=== PATIENT | female | born 1980 | race African-American/Black ===

== ENCOUNTER 2018-01-23 13:51 | Emergency (ER) | payer OTHER ==
[2018-01-23 14:00] VITALS: BP 158/102; PULSE 114; TEMP 98; BMI 43.6
[2018-01-23 15:17] LABS: HCG,QUALITATIVE URINE NEGATIVE; URINE APPEARANCE CLOUDY; URINE BILIRUBIN NEGATIVE (NEGATIVE); URINE BLOOD NEGATIVE (NEGATIVE); URINE COLOR LTYELLOW; URINE GLUCOSE (UA) NEGATIVE (NEGATIVE); URINE KETONE TRACE (NEGATIVE); URINE NITRITE NEGATIVE (NEGATIVE); URINE PROTEIN NEGATIVE (NEGATIVE); URINE UROBILINOGEN NEGATIVE mg/dL (0.2-1.0)
[2018-01-23 15:23] LABS: URINE LEUK ESTERASE 3+ (NEGATIVE)
[2018-01-23 15:25] LABS: EPI CELLS MANY /HPF (FEW); URINE BACTERIA RARE /hpf (NONE SEEN); URINE MUCUS RARE
--- NOTE | 2018-01-23 15:36 | PDOC ---
History of Present Illness - General Chief Complaint: Back Pain Stated Complaint: LOW BACK PAIN Time Seen by Provider: 01/23/18 14:23 - History of Present Illness Initial Comments: 01/23/18 15:35 CHIEF COMPLAINT: vaginal discomfort HISTORY OF PRESENT ILLNESS: 37 yo F with hx of HTN [facility] with c /o of vaginal burning x 1 week and back pain. Patient reports that she saw her OBGYN and was given a vaginal cream that has provided no relief. Patient denies any fever, chills, nausea, vomiting, or diarrhea. No recent travel or sick contacts. PAST MEDICAL HISTORY: Denies past medical history FAMILY HISTORY: Denies SOCIAL HISTORY: Denies tobacco, alcohol, illicit drug use. SURGICAL HISTORY: Denies ALLERGIES: No known drug allergies REVIEW OF SYSTEMS General/Constitutional: Denies fever or chills. Denies weakness. HEENT: Denies change in vision. Denies ear pain or discharge. Denies sore throat. Cardiovascular: Denies chest pain or shortness of breath. Respiratory: Denies cough, wheezing, or hemoptysis. Gastrointestinal: Denies nausea, vomiting, diarrhea or constipation. Denies rectal bleeding. Genitourinary: Vaginal burning, denies hematuria or urinary urgency/frequency. Musculoskeletal: Back discomfort. Denies joint or muscle swelling or pain. Skin and breasts: Denies rash or easy bruising. Neurologic: Denies headache, vertigo, loss of consciousness, or loss of sensation. PHYSICAL EXAM General Appearance: Well-appearing, appropriately dressed. No apparent distress , no intoxication. HEENT: EOMI, PERRLA, normal ENT inspection, normal voice, TMs normal, pharynx normal. No conjunctival pallor. No photophobia, scleral icterus. Neck: Supple. Trachea midline. No tenderness, rigidity, carotid bruit, stridor , lymphadenopathy, or thyromegaly. Respiratory/Chest: Lungs CTAB. No shortness of breath, chest tenderness, respiratory distress, accessory muscle use. No crackles, rales, rhonchi, stridor , wheezing, dullness Cardiovascular: RRR. S1, S2. No JVD, murmur, bradycardia, tachycardia. Vascular Pulses: Dorsalis-Pedis (R): 2+, Dorsalis-Pedis (L): 2+ Gastrointestinal/Abdominal: Normal bowel sounds. Abdomen soft, non-distended. No tenderness or rebound tenderness. No organomegaly, pulsatile mass, guarding , hernia, hepatomegaly, splenomegaly. Lymphatic: No adenopathy, tenderness. Musculoskeletal/Extremities: Normal inspection. FROM of all extremities, normal capillary refill. Pelvis Stable. No CVA tenderness. No tenderness to extremities, pedal edema, swelling, erythema or deformity. Integumentary: Appropriate color, dry, warm. No cyanosis, erythema, jaundice or rash Neurologic: clay burner II-XII intact. Fully oriented, alert. Appropriate mood/affect. Motor strength 5/5. No appreciable EOM palsy, facial droop or sensory deficit. 01/23/18 16:44 Past History - Past Medical History Allergies/Adverse Reactions: Allergies Allergy/AdvReac Type Severity Reaction Status Date / Time No Known Allergies Allergy Verified 01/23/18 14:00 Home Medications: Ambulatory Orders Losartan 50Mg/Hctz 12.5MG [Hyzaar -] 1 tab PO DAILY 01/23/18 Nitrofurantoin Monohyd/M-Cryst [Macrobid -] 100 mg PO BID #14 capsule 01/23/18 Phenazopyridine HCl [Azo Standard] 95 mg PO TID PRN #12 tablet 01/23/18 COPD: No HTN: Yes - Suicide/Smoking/Psychosocial Hx Smoking History: Never smoked *Physical Exam - Vital Signs Last Vital Signs Temp Pulse Resp BP Pulse Ox 98 F 114 H 20 158/102 99 01/23/18 13:57 01/23/18 13:57 01/23/18 13:57 01/23/18 13:57 01/23/18 13:57 ED Treatment Course - ADDITIONAL ORDERS Additional order review: Laboratory Results 01/23/18 14:45 Urine Color Ltyellow Urine Appearance Cloudy Urine pH 5.0 Ur Specific [place] 1.017 Urine Protein Negative Urine Glucose (UA) Negative Urine Ketones Trace H Urine Blood Negative Urine Nitrite Negative Urine Bilirubin Negative Urine Urobilinogen Negative Ur Leukocyte Esterase 3+ H Urine WBC (Auto) 52 Urine RBC (Auto) 2 Ur Epithelial Cells Many Urine Bacteria Rare Urine Mucus Rare Urine HCG, Qual Negative Medical Decision Making - Medical Decision Making 01/23/18 16:49 37 yo F with hx of HTN presents to [facility] with c/o of vaginal burning x 1 week and back pain. -Upreg, UA, UCx UA + 53 WBC Will treat for UTI. Macrobid, Azo, given. *DC/Admit/Observation/Transfer Diagnosis at time of Disposition: UTI (urinary tract infection) - Discharge Dispostion Disposition: HOME Condition at time of disposition: Stable Admit: No - Prescriptions Prescriptions: Nitrofurantoin Monohyd/M-Cryst [Macrobid -] 100 mg PO BID #14 capsule Phenazopyridine HCl [Azo Standard] 95 mg PO TID PRN #12 tablet PRN Reason: urinary pain/burning - Referrals Referrals: Judy Tejeda MD [Primary Care Provider] - - Patient Instructions Printed Discharge Instructions: DI for Urinary Tract Infection (UTI) Additional Instructions: Please take medications as prescribed; complete the entire course of antibiotics even if your symptoms improve. If you develop any fever, chills, vomiting, or diarrhea, or any new or worsening symptoms, please return to the ER. - Post Discharge Activity
== END 2018-01-23 15:42 | disposition home or self-care (01) ==
LOC: JERFT 13:51
DX: N39.0 Urinary tract infection, site not specified (principal); I10 Essential (primary) hypertension
CPT/HCPCS: 81003; 81015; 84703; 87086; 99281-25

== ENCOUNTER 2019-05-31 12:00 | Inpatient (IN) | payer OTHER ==
[2019-05-31 13:03] VITALS: BMI 45.1
[2019-05-31] MEDS ORDERED: SODIUM CHLORIDE 100 ML IVPB ONE ×2 (13:07→17:04)
[2019-05-31] MEDS ORDERED: AMPICILLIN SODIUM 2 GM VIAL ONE (13:07)
[2019-05-31] MEDS ORDERED: AMPICILLIN - 2 GM in SODIUM CHLORIDE 100 ML IVPB ONE (13:26)
[2019-05-31] MEDS: ELECTROLYTE-148 SOLN 1,000 ML IV SCH ×2 (13:30→18:47)
[2019-05-31 13:36] LABS: BASO % 0.3 % (0-2.0); EOS % 1.5 % (0-4.5); HEMATOCRIT 29.7 % (32.4-45.2); LYMPH % 20.1 % (8-40); MCH 32.4 pg (25.7-33.7); MCHC 33.8 g/dl (32.0-36.0); MEAN CELL VOLUME 95.9 fl (80-96); MEAN PLT VOLUME 8.5 fl (7.5-11.1); NEUT % 71.1 % (42.8-82.8); PLATELET COUNT 261 K/MM3 (134-434); RDW 12.6 % (11.6-15.6); WHITE BLOOD COUNT 7.4 K/mm3 (4.0-10.0)
[2019-05-31 13:49] LABS: INR 0.92 (0.83-1.09); PROTHROMBIN TIME (PATIENT) 10.9 SEC (9.7-13.0)
[2019-05-31 13:51] LABS: ACTIVATED PTT 30.7 SECONDS (25.2-36.5)
[2019-05-31 14:26] LABS: BLOOD UREA NITROGEN 8.6 mg/dL (7-18); CALCIUM 8.7 mg/dL (8.5-10.1); CREATININE 0.6 mg/dL (0.55-1.3); POTASSIUM 3.9 mmol/L (3.5-5.1)
--- NOTE | 2019-05-31 15:07 | HP ---
Past Medical History - Admission Chief Complaint: IOL for CHTN History of Present Illness: 38yo @ 39+wks here for IOL for CHTN- controlled on meds. No GAYLE, No N/ V. No RUQ pain. No edema No VB/LOF. No ctx. +FM. Preg c/b: AMA, CHTN- on Labatelol BID, prior PTD at 24wks s/p cerclage placement /removal, obesity, GBS UTI History Source: Patient Limitations to Obtaining History: No Limitations - Past Medical History FIELD SPECIALIST: No: Alzheimer's, CVA, Dementia, Migraine, Multiple Sclerosis, Peripheral Neuropathy, Parkinson's, Seizure, Syncope, TIA, Vertigo, Other Cardiovascular: Yes: HTN Pulmonary: No: Asthma, Bronchitis, Cancer, COPD, O2 Dependent, Pneumonia, Previously Intubated, Pulmonary Embolus, Pulmonary Fibrosis, Sleep Apnea, Other Gastrointestinal: No: Ascites, Cancer, Constipation, Crohn's Disease, Diverticulitis, Diverticulosis, Esophageal Varices, Gastritis, GERD, GI Bleed, Hemorrhoids, Hiatal Hernia, Inflamatory Bowel Disease, Irritable Bowel Disease, Pancreatitis, Peptic Ulcer Disease, Ulcerative Colitis, Other Hepatobiliary: No: Cirrhosis, Cholelithiasis, Cholecystitis, Choledocholithiasis , Hepatitis A, Hepatitis B, Hepatitis C, Other Renal/: Yes: UTI Reproductive: No: Ectopic , Endometriosis, Fibroids, PID, Polycystic Ovary Syndrome, Postmenopausal, Other ...: 4 ...Para: 2 ...Term: 1 ...: 1 ...Spon : 0 ...Induced : 1 ...Multiple Gestation: 0 ...EDC by Sono: 06/03/19 Heme/Onc: Yes: Anemia Infectious Disease: No: AIDS, C-Diff, Herpes Zoster, HIV, MRSA, STD's, Tuberculosis, VREF, Other Psych: No: Addictions, Anxiety, Bipolar, Depression, Panic, Psychosis, Schizophrenia, Other Musculoskeletal: No: Bursitis, Chronic low back pain, Hemiparesis, Hemiplegia, Osteoarthritis, Paraplegia, Other Rheumatology: No: Fibromyalgia, Gout, Lupus, Rheumatoid Arthritis, Sarcoidosis, Vasculitis, Other ENT: No: Allergic Rhinitis, Sinusitis, Other Endocrine: No: [place]'s Disease, Serena's Disease, Diabetes Insipidus, Diabetes Mellitus, Hyperparathyroidism, Hyperthyroidism, Hypothyroidism, Osteopenia, SIADH, Other Dermatology: No: Basal Cell, Cellulitis, Eczema, Melanoma, Psoriasis, Squamous Cell, Other - Past Surgical History Past Surgical History: Yes: None Hx Myomectomy: No Hx Transabdominal Cerclage: No - Smoking History Smoking history: Never smoked Have you smoked in the past 12 months: No - Alcohol/Substance Use Hx Alcohol Use: No History of Substance Use: reports: None - Social History Usual Living Arrangement: Yes: With Spouse ADL: Independent History of Recent Travel: No Home Medications - Allergies Allergies/Adverse Reactions: Allergies Allergy/AdvReac Type Severity Reaction Status Date / Time No Known Allergies Allergy Verified 05/31/19 12:47 - Home Medications Home Medications: Ambulatory Orders Labetalol HCl [Normodyne -] 200 mg PO BID 05/31/19 Physical Exam - Maternity Vital Signs: Vital Signs Temperature 98.0 F 05/31/19 14:25 Pulse Rate 102 H 05/31/19 14:25 Respiratory Rate 20 05/31/19 14:25 Blood Pressure 124/72 05/31/19 14:25 O2 Sat by Pulse Oximetry (%) Constitutional: Yes: Well Nourished, No Distress, Calm Eyes: Yes: WNL, Conjunctiva Clear, EOM Intact HENT: Yes: WNL, Atraumatic, Normocephalic Neck: Yes: WNL, Supple, Trachea Midline Cardiovascular: Yes: WNL, Regular Rate and Rhythm Breast(s): Yes: WNL - Abdominal Exam/OB Number of Fetuses: Single Presentation: Vertex Contractions: No Accelerations: Non-Uniform Decelerations: None - Vaginal Exam/OB Dilatation (cm): 4 Effacement (%): 75 Amniotic Membrane Status: Intact Presentation: Vertex/Position Station: -3 - Physical Exam Edema: No - Labs Lab Results: CBC, BMP 05/31/19 13:18 05/31/19 13:18 Problem List - Problems (1) Hypertension Code(s): I10 - ESSENTIAL (PRIMARY) HYPERTENSION Assessment/Plan 38yo @ 39wks here for IOL for CHTN- controlled Admit to L&D Amp for GBS positive Pitocin/AROM for IOL Epidural anesthesia Cat I tracing Anticipate NIECY Lopez MD
[2019-05-31] MEDS ORDERED: OXYTOCIN 30 UNITS in 0.9% NS 30 UNIT/500 ML INFUS.BAG IVPB ONE (15:53)
[2019-05-31] MEDS: OXYTOCIN 30 UNITS in 0.9% NS 30 UNIT/500 ML INFUS.BAG IVPB SCH (16:05)
[2019-05-31 16:34] LABS: COCAINE, UR NEGATIVE ng/ml (CUTOFF=300); METHADONE, UR NEGATIVE ng/ml (CUTOFF=300); OPIATES, URI NEGATIVE ng/ml (CUTOFF=300); PHENCYCLIDINE,URINE NEGATIVE ng/ml (CUTOFF=25); URINE AMPHETAMINES NEGATIVE ng/ml (CUTOFF=500); URINE BARBITURATES NEGATIVE ng/ml (CUTOFF=200); URINE BENZODIAZEPINES NEGATIVE ng/ml (CUTOFF=200)
[2019-05-31] MEDS ORDERED: AMPICILLIN SODIUM 1 GM VIAL ONE ×2 (17:04→20:57)
[2019-05-31] MEDS: AMPICILLIN - 1 GM in SODIUM CHLORIDE 100 ML IVPB SCH ×2 (17:09→21:18)
--- NOTE | 2019-05-31 17:20 | PN ---
Progress Note, Labor Vaginal Exam #1 Labor Exam Date: 05/31/19 Labor Exam Time: 17:20 Heart Rate (range): Cat I Dilatation: 4 Effacement (%): 75 Amniotic Membrane Status: Ruptured Presentation: Vertex/Position Station: -3 Remarks: AROM, clears Declined epidural at this time Cont pitocin Anticipate Nasir Lopez MD
[2019-05-31] MEDS ORDERED: FENTANYL/BUPIVACAINE/NS/PF - PCEA - 50 ML DISP.SYRIN EP ONE (17:54)
[2019-05-31] MEDS: FENTANYL/BUPIVACAINE/NS/PF - PCEA - 50 ML DISP.SYRIN EP SCH (18:25)
[2019-05-31] MEDS ORDERED: NALOXONE HCL 0.4 MG/ML VIAL IVPUSH PRN (18:52)
--- NOTE | 2019-05-31 20:16 | PN ---
Progress Note, Labor Vaginal Exam #2 Labor Exam Date: 05/31/19 Labor Exam Time: 20:08 Heart Rate (range): Cat I Dilatation: 6 Effacement (%): 700 Amniotic Membrane Status: Ruptured Presentation: Vertex/Position Station: -3 Remarks: Pt comfortable s/p epidural Pit @ 6mu Difficulty monitoring contractions 2/2 habitus, IUPC placed Anticipate Nasir Lopez MD
[2019-05-31] MEDS ORDERED: LIDOCAINE HCL 1% PRESERVATIVE FREE - 30ML VIAL ONE (20:57)
--- NOTE | 2019-05-31 21:53 | PN ---
Progress Note, Labor Vaginal Exam #3 Labor Exam Date: 05/31/19 Labor Exam Time: 21:52 Heart Rate (range): Cat II Dilatation: 10 Effacement (%): 100 Amniotic Membrane Status: Ruptured Presentation: Vertex/Position Station: 0 Remarks: Now complete Variable decelerations, thus Cat II Start pushing Anticipate NIECY Lopez MD
[2019-05-31] MEDS ORDERED: OXYTOCIN 20 UNITS in 0.9% NS 20 UNIT/1,000 ML INFUS.BAG IV ONE (22:18)
[2019-05-31] MEDS ORDERED: BENZOCAINE 20% 57 GM BOTTLE TP PRN (22:34)
[2019-05-31] MEDS ORDERED: METHYLERGONOVINE MALEATE 0.2 MG/1 ML AMP IM PRN (22:34)
[2019-05-31] MEDS ORDERED: BENZOCAINE 28 GM HEMORRHOIDAL OINTMENT TP PRN (22:34)
[2019-05-31] MEDS ORDERED: BISACODYL 10 MG SUPP.RECT RC PRN (22:34)
[2019-05-31] MEDS ORDERED: WITCH HAZEL 50% (TUCKS) 40 PAD/JAR PAD TP PRN (22:34)
--- NOTE | 2019-05-31 22:34 | PN ---
Delivery - Delivery Vaginal Delivery: Spontaneous Type of Anesthesia: Epidural Episiotomy/Laceration: None EBL (cc): 300 Delivery, Single - Stages of Labor Placenta: Yes: Spontaneous - Condition of Sba Underwriter/Inbound Call Center Representative Present: No Infant Gender: Male Position: Left, OA - 1 Minute Total Score: 9 5 Minutes Total Score: 9 - [place] Feeding Plan Initial Plan: Elected not to breastfeed exclusively throughout hospitalization Remarks - Remarks Remarks: of VMI from JUSTIN position over intact perineum. Epidural anesthesia. 39 week . Spontaneous delivery of anterior shoulder. placed on maternal abdomen. Vigorous. Apgars 9/9. Weight pending. Spontaneous delivery of intact placenta with 3VC. Fundus firm. Perineum inspected, no lacerations. EBL 300. Mother and baby boyJohn, doing well. Rylee Lopez MD
[2019-05-31] MEDS: OXYTOCIN 20 UNITS in 0.9% NS 20 UNIT/1,000 ML INFUS.BAG IV SCH (23:00)
[2019-06-01] MEDS: OXYTOCIN 20 UNITS in 0.9% NS 20 UNIT/1,000 ML INFUS.BAG IV SCH (07:00)
[2019-06-01] MEDS: ACETAMINOPHEN 325 MG TABLET (FP) PO PRN ×2 (08:01→23:31)
--- NOTE | 2019-06-01 08:05 | PN ---
Post Progress Note Type of Delivery: Vital Signs: Vital Signs Temperature 98.4 F 06/01/19 06:00 Pulse Rate 73 06/01/19 06:00 Respiratory Rate 18 06/01/19 06:00 Blood Pressure 123/68 06/01/19 06:00 O2 Sat by Pulse Oximetry (%) 98 05/31/19 23:15 Uterus: No: Fundus Firm, Fundus above umbilicus, Fundus @ umbilicus, Fundus below umbilicus, Non-tender, Other Incision: No: Dressing dry and intact, [place] intact, Sutures intact, Redness, Oozing, Other Abdomen/GI: Yes: Abdomen soft Lochia: Yes: Rubra Lochia, amount: Small Extremities: Yes: Calves non-tender Perineum: Yes: Intact Activity: Ambulating - Labs Labs: CBC WBC 7.4 K/mm3 (4.0-10.0) 05/31/19 13:18 RBC 3.10 M/mm3 (3.60-5.2) L 05/31/19 13:18 Hgb 10.0 GM/dL (10.7-15.3) L 05/31/19 13:18 Hct 29.7 % (32.4-45.2) L 05/31/19 13:18 MCV 95.9 fl (80-96) 05/31/19 13:18 MCH 32.4 pg (25.7-33.7) 05/31/19 13:18 MCHC 33.8 g/dl (32.0-36.0) 05/31/19 13:18 RDW 12.6 % (11.6-15.6) 05/31/19 13:18 Plt Count 261 K/MM3 (134-434) 05/31/19 13:18 MPV 8.5 fl (7.5-11.1) 05/31/19 13:18 Absolute Neuts (auto) 5.3 K/mm3 (1.5-8.0) 05/31/19 13:18 Neutrophils % 71.1 % (42.8-82.8) 05/31/19 13:18 Lymphocytes % 20.1 % (8-40) 05/31/19 13:18 Monocytes % 7.0 % (3.8-10.2) 07/17/19 13:18 Eosinophils % 1.5 % (0-4.5) 05/31/19 13:18 Basophils % 0.3 % (0-2.0) 05/31/19 13:18 Nucleated RBC % 0 % (0-0) 05/31/19 13:18 Problem List - Problems (1) Hypertension Code(s): I10 - ESSENTIAL (PRIMARY) HYPERTENSION Assessment/Plan 38yo s/p , PPD#1 Routine PP care Cont HTN meds Labs pending D/C to home PPD#2 Nasir Lopez MD
[2019-06-01 08:07] LABS: BASO % 0.4 % (0-2.0); EOS % 1.8 % (0-4.5); HEMATOCRIT 29.7 % (32.4-45.2); HEMOGLOBIN 10.1 GM/dL (10.7-15.3); LYMPH % 20.1 % (8-40); MCHC 34.1 g/dl (32.0-36.0); MEAN CELL VOLUME 96.8 fl (80-96); MEAN PLT VOLUME 8.3 fl (7.5-11.1); MONO % 9.7 % (3.8-10.2); RBC 3.06 M/mm3 (3.60-5.2); RDW 12.6 % (11.6-15.6); WHITE BLOOD COUNT 9.7 K/mm3 (4.0-10.0)
[2019-06-01] MEDS: IBUPROFEN 600 MG TABLET (FP) PO PRN ×2 (08:18→23:31)
[2019-06-01 08:34] LABS: PLATELET COUNT 265 K/MM3 (134-434)
[2019-06-01] MEDS: PRENATAL VITAMINS W/ FOLIC ACID TABLET (FP) PO SCH (09:38)
[2019-06-01] MEDS: LABETALOL HCL 200 MG TABLET (FP) PO SCH ×2 (09:38→21:10)
[2019-06-01] MEDS ORDERED: SENNOSIDES/DOCUSATE COMBO (SENNA PLUS) TABLET (UD) PO PRN (22:00)
[2019-06-02] MEDS: ELECTROLYTE-148 SOLN 1,000 ML IV SCH (05:29)
[2019-06-02] MEDS: FENTANYL/BUPIVACAINE/NS/PF - PCEA - 50 ML DISP.SYRIN EP SCH (05:29)
[2019-06-02] MEDS: OXYTOCIN 30 UNITS in 0.9% NS 30 UNIT/500 ML INFUS.BAG IVPB SCH (05:29)
[2019-06-02] MEDS: OXYTOCIN 20 UNITS in 0.9% NS 20 UNIT/1,000 ML INFUS.BAG IV SCH (05:29)
[2019-06-02] MEDS: AMPICILLIN - 1 GM in SODIUM CHLORIDE 100 ML IVPB SCH (05:37)
--- NOTE | 2019-06-02 06:09 | DS ---
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 Vital Signs: Vital Signs Temperature 98.6 F 06/02/19 05:54 Pulse Rate 88 06/02/19 05:54 Respiratory Rate 20 06/02/19 05:54 Blood Pressure 138/88 06/02/19 05:54 O2 Sat by Pulse Oximetry (%) 98 05/31/19 23:15 Constitutional: Yes: Well Nourished, No Distress, Calm Eyes: Yes: WNL, Conjunctiva Clear, EOM Intact HENT: Yes: WNL, Atraumatic, Normocephalic Neck: Yes: WNL, Supple, Trachea Midline Cardiovascular: Yes: WNL, Regular Rate and Rhythm Respiratory: Yes: WNL, Regular, CTA Bilaterally Gastrointestinal: Yes: WNL ...Rectal Exam: Yes: WNL Renal/: Yes: WNL ....Post : Yes: Uterus firm, Uterus non-tender, Slight lochia rubra Breast(s): Yes: WNL Musculoskeletal: Yes: WNL Extremities: Yes: WNL Edema: No Integumentary: Yes: WNL Neurological: Yes: WNL, Alert, Oriented ...Motor Strength: WNL Psychiatric: Yes: WNL, Alert, Oriented Labs: CBC, BMP 06/01/19 07:40 05/31/19 13:18 Delivery - Delivery Vaginal Delivery: Spontaneous Type of Anesthesia: Epidural Episiotomy/Laceration: None EBL (cc): 300 Delivery, Single - Stages of Labor Date 1st Stage Initiatied: 05/31/19 Time 1st Stage Initiated: 21:00 Date 2nd Stage Initiated: 05/31/19 Time 2nd Stage Initiated: 21:50 Date of Delivery: 05/31/19 Time of Delivery: 22:21 Time Placenta Delivered: 22:28 Placenta: Yes: Spontaneous - Condition of Circuit Design Engineer/Commercial Food Instructor Present: No Gender: Male Weight: 7 lb 8 oz Position: Left, OA Total Hours ROM (Hrs/Mins): 5/1 - 1 Minute Total Score: 9 5 Minutes Total Score: 9 - [place] Feeding Plan Initial Plan: Elected not to breastfeed exclusively throughout hospitalization Discharge Summary Reason For Visit: INDUCTION OF LABOR Procedures: Principal: Condition: Stable - Instructions Diet, Activity, Other Instructions: Regular Diet Follow up in one week for a blood pressure check Referrals: Rylee Lopez MD [Staff Physician] - Disposition: HOME - Home Medications Comprehensive Discharge Medication List: Ambulatory Orders Labetalol HCl [Normodyne -] 200 mg PO BID 05/31/19
--- NOTE | 2019-06-02 06:11 | PN ---
Progress Note (short form) - Note Progress Note: ppd 2 ,no c/o , no excess vaginal bleeding CBC, BMP 06/01/19 07:40 05/31/19 13:18 Last Vital Signs Temp Pulse Resp BP Pulse Ox 98.6 F 88 20 138/88 98 06/02/19 05:54 06/02/19 05:54 06/02/19 05:54 06/02/19 05:54 05/31/19 23:15 abdomen soft, uterus firm, non tender no calf tenderness lochia mild no edema plan d/c home, asymptomatic follow up in H care and with her pcp for HTNinstruction given
[2019-06-02 09:15] VITALS: TEMP 98.4
[2019-06-02] MEDS: LABETALOL HCL 200 MG TABLET (FP) PO SCH (09:28)
[2019-06-02] MEDS: PRENATAL VITAMINS W/ FOLIC ACID TABLET (FP) PO SCH (09:28)
[2019-06-02 09:44] VITALS: BP 120/68; PULSE 91
== END 2019-06-02 15:30 | disposition home or self-care (01) | DRG 560 ==
LOC: JLDR 12:00 → J3W 06-01 00:35
PROVIDERS: ADMIT Obstetrics & Gynecology; ATTEND Obstetrics & Gynecology
PROC: 10E0XZZ Delivery of Products of Conception, External Approach (ICD-10-PCS; principal; 2019-05-31)
DX: O80 Encounter for full-term uncomplicated delivery (principal); Z3A.39 39 weeks gestation of pregnancy; Z37.0 Single live birth
CPT/HCPCS: 36415; 59409; 80048; 80307; 85025; 85610; 85730; 86593; 86850; 86900; 86901

== ENCOUNTER 2020-10-22 12:00 | Emergency (ER) | payer OTHER ==
[2020-10-22 12:14] VITALS: BP 149/86; PULSE 87; TEMP 97.5; BMI 35.7
== END 2020-10-22 13:15 | disposition home or self-care (01) ==
LOC: JER 12:00
DX: M54.2 Cervicalgia (principal)
CPT/HCPCS: 72040-TC; 99283-25

== ENCOUNTER 2020-11-05 11:19 | Emergency (ER) | payer OTHER ==
[2020-11-05 11:35] VITALS: BP 155/89; PULSE 82; TEMP 98.1; BMI 35.2
[2020-11-05] MEDS ORDERED: ACETAMINOPHEN 500 MG TABLET (FP) PO ONE (12:00)
[2020-11-05] MEDS ORDERED: ACETAMINOPHEN 500 MG TABLET (FP) ONE (12:05)
[2020-11-05 13:33] LABS: EPI CELLS >36 /uL (0-25.1); HYALINE CASTS 3 /uL (0-3.1); URINE APPEARANCE TURBID; URINE BACTERIA 24 /uL (0-1359); URINE BILIRUBIN 1+ (NEGATIVE); URINE COLOR RED; URINE GLUCOSE (UA) NEGATIVE (NEGATIVE); URINE KETONE NEGATIVE (NEGATIVE); URINE LEUK ESTERASE 2+ (NEGATIVE); URINE NITRITE NEGATIVE (NEGATIVE); URINE PROTEIN 2+ (NEGATIVE); URINE RBC 32077 /uL (0-23.9); URINE UROBILINOGEN 0.2 mg/dL (0.2-1.0); URINE WBC 99 /uL (0-25.8)
[2020-11-05 13:43] LABS: HCG,QUALITATIVE URINE Negative
[2020-11-05] MEDS ORDERED: IBUPROFEN 600 MG TABLET (FP) PO ONE (13:55)
[2020-11-05] MEDS ORDERED: NAPROXEN 500 MG TABLET PO ONE (13:57)
[2020-11-05] MEDS ORDERED: NAPROXEN 500 MG TABLET ONE (14:01)
== END 2020-11-05 14:04 | disposition home or self-care (01) ==
LOC: JERFT 11:19
DX: M54.5 Low back pain (principal)
CPT/HCPCS: 81003; 84703; 87086; 99283-25

== ENCOUNTER 2021-05-08 08:19 | Emergency (ER) | payer OTHER ==
[2021-05-08 08:32] VITALS: BMI 34.0
[2021-05-08 10:35] LABS: BASO % 1.9 % (0-2.0); EOS % 2.8 % (0-4.5); HEMATOCRIT 38.2 % (32.4-45.2); HEMOGLOBIN 12.6 GM/dL (10.7-15.3); LYMPH % 47.7 % (8-40); MCH 31.2 pg (25.7-33.7); MCHC 32.9 g/dl (32.0-36.0); MEAN CELL VOLUME 94.8 fl (80-96); MONO % 7.4 % (3.8-10.2); NEUT % 40.2 % (42.8-82.8); PLATELET COUNT 270 10^3/uL (134-434); RBC 4.02 M/mm3 (3.60-5.2); RDW 12.7 % (11.6-15.6)
[2021-05-08 12:29] LABS: CHLORIDE 104 mmol/L (98-107); SODIUM 140 mmol/L (136-145)
[2021-05-08 12:32] LABS: ANION GAP 8 MMOL/L (8-16); BLOOD UREA NITROGEN 17.8 mg/dL (7-18); CALCIUM 9.4 mg/dL (8.5-10.1); CO2 27 mmol/L (21-32); GLUCOSE,RANDOM 77 mg/dL (74-106)
[2021-05-08 12:36] LABS: CREATININE 0.8 mg/dL (0.55-1.3); SGOT/AST 16 U/L (15-37)
[2021-05-08 12:38] LABS: BILIRUBIN,TOTAL 0.8 mg/dL (0.2-1)
[2021-05-08 12:39] LABS: ALK PHOS 75 U/L (45-117)
[2021-05-08 13:16] LABS: SGPT/ALT 16 U/L (13-61)
[2021-05-08 17:16] VITALS: BP 146/89; PULSE 75; TEMP 98
== END 2021-05-08 17:15 | disposition home or self-care (01) ==
LOC: JER 08:19
DX: R07.89 Other chest pain (principal)
CPT/HCPCS: 36415; 71046-TC-FY; 71275-TC; 80053; 82550; 84484; 85025; 85379; 93005; 93010; 99285-25; Q9967

== ENCOUNTER 2024-09-06 09:54 | Emergency (ER) | payer OTHER ==
[2024-09-06 10:08] VITALS: TEMP 98.8; BMI 33.4
[2024-09-06 11:57] LABS: BASO % 0.9 % (0-2.0); EOS % 0.8 % (0-4.5); HEMATOCRIT 38.6 % (32.4-45.2); HEMOGLOBIN 12.9 GM/dL (10.7-15.3); LYMPH % 36.6 % (8-40); MCH 30.8 pg (25.7-33.7); MCHC 33.6 g/dl (32.0-36.0); MEAN CELL VOLUME 91.6 fl (80-96); MEAN PLT VOLUME 8.2 fl (7.5-11.1); MONO % 8.6 % (3.8-10.2); NEUT % 53.1 % (42.8-82.8); PLATELET COUNT 352 10^3/uL (134-434); RBC 4.21 M/mm3 (3.60-5.2); RDW 12.2 % (11.6-15.6); WHITE BLOOD COUNT 4.1 K/mm3 (4.0-10.0)
[2024-09-06 12:05] LABS: INR 1.02 (0.83-1.09); PROTHROMBIN TIME (PATIENT) 11.7 SEC (9.7-13.0)
[2024-09-06 12:07] LABS: ACTIVATED PTT 32.1 SECONDS (25.2-36.5)
[2024-09-06 12:14] LABS: POTASSIUM 3.9 mmol/L (3.5-5.1)
[2024-09-06 12:16] LABS: ALBUMIN 4.1 g/dl (3.4-5.0); BLOOD UREA NITROGEN 11.9 mg/dL (7-18); CALCIUM 9.5 mg/dL (8.5-10.1)
[2024-09-06 12:18] LABS: MAGNESIUM 2.3 mg/dL (1.8-2.4)
[2024-09-06 12:21] LABS: BILIRUBIN,TOTAL 1.7 mg/dL (0.2-1); TOT PROT 8.3 g/dl (6.4-8.2)
[2024-09-06 14:43] VITALS: BP 147/98; PULSE 90; RESP 20
== END 2024-09-06 14:44 | disposition home or self-care (01) ==
LOC: JER 09:54
DX: R07.89 Other chest pain (principal)
CPT/HCPCS: 36415; 71046-TC-FY; 80053; 83735; 84484; 85025; 85610; 85730; 93005; 93010; 99285-25